=== PATIENT | male | born 1935 | race Caucasian/White ===

== ENCOUNTER 2018-01-03 09:27 | Observation (INO) ==
--- NOTE | 2018-01-03 10:03 | ED ---
HPI General Chief Complaint: Syncope Stated Complaint: syncope x yesterday Time Seen by Provider: 01/03/18 09:58 Source: patient Mode of arrival: ambulatory Limitations: no limitations History of Present Illness HPI narrative: 82-year-old male patient with history of hypertension, hypothyroidism, presents to the ER today because he had a syncopal episode while getting water from the fridge yesterday. He states that he had a similar episode about 4-6 months ago. He states that he did feel like he was not quite right right before the episode. However, he denies any chest pains, denies any headaches, denies any injuries or other issues. Modifying Factors: None Associated Signs & Symptoms: Syncope Risk Factors: None Related Data Home Medications Medication Instructions Recorded Confirmed levothyroxine 25 mcg PO DAILY 01/03/18 01/03/18 propranolol 10 mg PO BID 01/03/18 01/03/18 simvastatin 10 mg PO QPM 01/03/18 01/03/18 Allergies Allergy/AdvReac Type Severity Reaction Status Date / Time No Known Allergies Allergy Verified 01/03/18 09:35 Review of Systems ROS: all other systems reviewed are negative [facility] Medical History Medical History History of high cholesterol (Acute) History of hypothyroidism (Acute) Surgical History Surgical History History of bilateral knee replacement (Acute) Social History Social History Substance History: No History of Abuse Smoking Status: Former smoker Tobacco Type: Cigarettes How Often Do You Have a Drink Containing Alcohol: Never Recent Travel in [facility] within the Last 8 Weeks: No Recent Out of Country Travel within the Last 8 Weeks: No Immunization History Tetanus Immunization: Unsure Exam Narrative Exam Narrative: GENERAL: Well-developed elderly male patient currently in no acute distress. SKIN: Focused skin assessment warm/dry. HEAD: Atraumatic. Normocephalic. EYES: Pupils equal and round. No scleral icterus. No injection or drainage. ENT: No nasal bleeding or discharge. Mucous membranes pink and moist. NECK: Trachea midline. No JVD. CARDIOVASCULAR: Regular rate and rhythm. No murmur appreciated. RESPIRATORY: No accessory muscle use. Clear to auscultation. Breath sounds equal bilaterally. GASTROINTESTINAL: Abdomen soft, non-tender, nondistended. Hepatic and splenic margins not palpable. MUSCULOSKELETAL: No obvious deformities. No clubbing. No cyanosis. No edema. NEUROLOGICAL: Awake and alert. No obvious cranial nerve deficits. Motor grossly within normal limits. Normal speech.No pronator drift. PSYCHIATRIC: Appropriate mood and affect; insight and judgment normal. Course Initial Documented Vital Signs Temperature 97.5 F L 01/03/18 09:32 Pulse Rate 67 01/03/18 09:32 Respiratory Rate 16 01/03/18 09:32 Blood Pressure 180/92 H 01/03/18 09:32 Pulse Oximetry 97 01/03/18 09:32 Last Documented Vital Signs Temperature 97.5 F L 01/03/18 09:32 Pulse Rate 67 01/03/18 09:32 Respiratory Rate 16 01/03/18 09:32 Blood Pressure 180/92 H 01/03/18 09:32 Pulse Oximetry 97 01/03/18 09:32 Medical Decision Making MDM Narrative Medical decision making narrative: EKG shows a first-degree AV block, but is otherwise fairly unremarkable. Lab work did show some elevated BUN and creatinine, potassium is mildly elevated, perhaps he is somewhat dehydrated. Vital signs are stable in the ER. At this point, considering his syncopal episode and age, my plan would be to admit him for further evaluation of syncope. Case has been discussed with Dr. Tillman for admission. Medical Screen Exam Complete: Yes Emergency Medical Condition: Yes Differential Diagnosis Differential Diagnosis: Dysrhythmias versus dehydration versus electrolyte issues versus intracranial injuries Lab Data Lab results reviewed: Yes I reviewed the patient's lab results. Result diagrams: 01/03/18 10:00 01/03/18 10:00 Lab Results 01/03/18 01/03/18 Range/Units 10:00 10:00 CBC w Diff Auto diff final WBC 7.0 (4.0-11.0) th/mm3 RBC 4.99 (4.50-5.90) mil/mm3 Hgb 14.9 (13.0-17.0) gm/dL Hct 44.7 (39.0-51.0) % MCV 89.5 (80.0-100.0) fL MCH 29.8 (27.0-34.0) pg MCHC 33.3 (32.0-36.0) % RDW 13.1 (11.6-17.2) % Plt Count 177 (150-450) th/mm3 MPV 8.0 (7.0-11.0) fL Neut % (Auto) 73.5 H (16.0-70.0) % Lymph % (Auto) 14.7 (9.0-44.0) % Worth % (Auto) 8.0 (0.0-8.0) % Eos % (Auto) 2.8 (0.0-4.0) % Baso % (Auto) 1.0 (0.0-2.0) % Neut # (Auto) 5.1 (1.8-7.7) th/mm3 Lymph # (Auto) 1.0 (1.0-4.8) th/mm3 Worth # (Auto) 0.6 (0.0-0.9) th/mm3 Eos # (Auto) 0.2 (0.0-0.4) th/mm3 Baso # (Auto) 0.1 (0.0-0.2) th/mm3 WBC Differential . Differential Comment . Sodium 139 (136-145) meq/L Potassium 5.7 H (3.5-5.1) meq/L Chloride 109 H (98-107) meq/L Carbon Dioxide 21.2 (21.0-32.0) meq/L Anion Gap 9 (5-15) meq/L BUN 23 H (7-18) mg/dL Creatinine 1.40 H (0.60-1.30) mg/dL Estimated GFR 49 L (>89) mL/min Random Glucose 153 H (74-106) mg/dL Calcium 8.3 L (8.5-10.1) mg/dL Troponin I 0.03 (0.02-0.05) ng/mL Imaging Data Attestation: I personally reviewed and interpreted this imaging study as follows : Radiologist's impression: Chest X-Ray 01/03/18 09:58 CONCLUSION: Negative examination. Head CT 01/03/18 09:58 CONCLUSION: 1. Negative CT Head non contrast. . ECG Data Attestation: I personally reviewed and interpreted this ECG as follows: Interpretation: Sinus rhythm with a first-degree AV block, with a right bundle branch block pattern at a rate of 60 bpm. Discharge Plan Discharge Disposition Patient Disposition: 30 Still Patient Discharge Condition Condition: Stable Discharge Details Anticipated Discharge Date: 01/03/18 Diagnosis: Syncope Physicians Team ED Provider: Aron Freire Primary Care Provider: Sagar Zee Rxs /Orders / Referrals /Forms Prescriptions: No Action simvastatin 10 mg Tablet 10 mg PO QPM RF: 0 propranolol 10 mg Tablet 10 mg PO BID RF: 0 levothyroxine 25 mcg Capsule 25 mcg PO DAILY RF: 0 Status ED Status: With Doctor
[2018-01-03 10:14] LABS: Baso # (Auto) 0.1 th/mm3 (0.0-0.2); Eos # (Auto) 0.2 th/mm3 (0.0-0.4); Eos % (Auto) 2.8 % (0.0-4.0); Hematocrit 44.7 % (39.0-51.0); Hemoglobin 14.9 gm/dL (13.0-17.0); Lymph % (Auto) 14.7 % (9.0-44.0); Mean Corpuscular HGB Conc 33.3 % (32.0-36.0); Mean Corpuscular Hemoglobin 29.8 pg (27.0-34.0); Mean Corpuscular Volume 89.5 fL (80.0-100.0); Mono # (Auto) 0.6 th/mm3 (0.0-0.9); Neut # (Auto) 5.1 th/mm3 (1.8-7.7); Neut % (Auto) 73.5 % (16.0-70.0); Platelet Count 177 th/mm3 (150-450); Red Blood Count 4.99 mil/mm3 (4.50-5.90); Red Cell Distribution Width 13.1 % (11.6-17.2)
--- NOTE | 2018-01-03 10:26 | CT ---
EXAM DATE: 01/03/2018 10:19 AM EST AGE/SEX: 82 years / Male INDICATIONS: Syncope. CLINICAL DATA: This is the patient's initial encounter. Patient reports that signs and symptoms have been present for 2 days and indicates a pain score of 0/10. MEDICAL/SURGICAL HISTORY: Hypercholesterolemia. Hypothyroidism. . Bilateral knee replacement. RADIATION DOSE: 58.33 CTDI (mGy) COMPARISON: No prior exams available for comparison. TECHNIQUE: CT of the head without contrast. Using automated exposure control and adjustment of the mA and/or kV according to patient size, radiation dose was kept as low as reasonably achievable to ob tain optimal diagnostic quality images. DICOM format image data is available electronically for revi ew and comparison. FINDINGS: Cerebrum: The ventricles are normal for age. No evidence of midline shift, mass lesion, hemorrhage or acute infarction. No extraaxial fluid collections are seen. Posterior Fossa: The cerebellum and brainstem are intact. The 4th ventricle is midline. The cerebe llopontine angle is unremarkable. Extracranial: The visualized portion of the orbits is intact. Skull: The calvaria is intact. No evidence of skull fracture. CONCLUSION: 1. Negative CT Head non contrast. . Electronically signed by: Raul Shelton MD 01/03/2018 10:25 AM EST
[2018-01-03 10:30] LABS: Calcium 8.3 mg/dL (8.5-10.1)
[2018-01-03 10:31] LABS: Carbon Dioxide 21.2 meq/L (21.0-32.0)
[2018-01-03 10:32] LABS: Potassium 5.7 meq/L (3.5-5.1)
--- NOTE | 2018-01-03 10:34 | XR ---
EXAM DATE: 01/03/2018 10:30 AM EST AGE/SEX: 82 years / Male INDICATIONS: Syncope. CLINICAL DATA: This is the patient's initial encounter. Patient reports that signs and symptoms have been present for 1 day and indicates a pain score of 0/10. MEDICAL/SURGICAL HISTORY: Hypothyroidism. Hypercholesterolemia. None. COMPARISON: [facility], XR CHEST PA AND LAT, 11/27/2015. . FINDINGS: A single AP view of the chest demonstrates the lungs to be symmetrically aerated without evidence of mass, infiltrate or effusion. The cardiomediastinal contours are unremarkable. Osseous structures a re intact. CONCLUSION: Negative examination. Electronically signed by: Raul Shelton MD 01/03/2018 10:33 AM EST
[2018-01-03 10:39] LABS: Troponin I 0.03 ng/mL (0.02-0.05)
--- NOTE | 2018-01-03 13:03 | P.HPIM ---
History of Present Illness Primary Care Physician: Sagar Zee MD History of Present Illness: This patient is an 82-year-old male with a diagnosis of hypertension, hypothyroidism, and intention tremors. The patient presents to our emergency department today after he had a syncopal episode last night. The patient states he was sitting down on the couch and he got up to walk towards the refrigerator when he blacked out and fell to the ground. He said he had a similar episode approximately 6 months ago. The patient did not have any chest pain, no palpitations, no seizure-like activity prior to the syncopal episode. He denied any nausea or diaphoresis prior to the episode. His notes that the patient was slightly diaphoretic after the episode. No bowel or bladder incontinence. The patient denies any injuries after the syncopal episode. He does not have any other complaints. Past medical history hypertension, hypothyroidism, intention tremors Past surgical history bilateral knee replacements Social history the patient admits to smoking tobacco in his teens, no alcohol use, no history of drug use. Family history significant for coronary artery disease. Review of Systems All other systems reviewed negative except as stated in HPI PMFSH - History History Provided By: Patient - Medical History Medical History: Medical History (Last Reviewed 01/03/18 @ 10:01 by Aron Freire MD) History of high cholesterol History of hypothyroidism - Surgical History Surgical History: Surgical History (Last Reviewed 01/03/18 @ 10:01 by Aron Freire MD) History of bilateral knee replacement - Tobacco History Tobacco Use In Past 30 Days: No Smoking Status: Former smoker Tobacco Type: Cigarettes - Alcohol History How Often Do You Have a Drink Containing Alcohol: Never - Substance Use History Substance History: No History of Abuse - Travel History Recent Travel in the [place] Within the Last 8 Weeks: No Recent Travel Out of the Country Within the Last 8 Weeks: No - Immunization History Tetanus Immunization: Unsure Medications and Allergies Active Medications: Active Medications Amlodipine Besylate (Norvasc) 5 mg PO DAILY ISABELL Sodium Chloride (Ns Inj) 1,000 mls @ 84 mls/hr IV.CONT .[id number] ISABELL Allergies Allergy/AdvReac Type Severity Reaction Status Date / Time No Known Allergies Allergy Verified 01/03/18 09:35 Home Medications Medication Instructions Recorded Confirmed Type RX: levothyroxine 25 mcg PO DAILY 01/03/18 01/03/18 History RX: propranolol 10 mg PO BID 01/03/18 01/03/18 History RX: simvastatin 10 mg PO QPM 01/03/18 01/03/18 History Exam Vital signs: Vital Signs 01/03/18 09:32 01/03/18 11:50 Temperature 97.5 F L Pulse Rate 67 58 L Respiratory Rate 16 16 Blood Pressure 180/92 H 140/92 H Pulse Oximetry 97 95 Intake & Output 01/02/18 01/03/18 01/03/18 18:59 06:59 18:59 Weight 78 kg Narrative: General patient in no acute distress HEENT extraocular movements are intact, clear oropharyngeal mucosa, no JVD Cardiovascular S1-S2 audible, RRR, no murmurs rubs or gallops Respiratory clear to auscultation bilaterally Abdomen soft, nontender, nondistended, normal bowel sounds Extremities no edema 2+ distal pulses in bilateral upper and lower extremities Neuro cranial nerves II through XII intact Results - Labs CBC & Chem 7: 01/03/18 10:00 01/03/18 10:00 Labs: Short CBC 01/03/18 Range/Units 10:00 WBC 7.0 (4.0-11.0) th/mm3 Hgb 14.9 (13.0-17.0) gm/dL Hct 44.7 (39.0-51.0) % Plt Count 177 (150-450) th/mm3 BMP 01/03/18 10:00 Sodium 139 Potassium 5.7 H Chloride 109 H Carbon Dioxide 21.2 BUN 23 H Creatinine 1.40 H Calcium 8.3 L Cardiac Enzymes 01/03/18 Range/Units 10:00 Troponin I 0.03 (0.02-0.05) ng/mL - Imaging Impressions Chest X-Ray 01/03/18 09:58 CONCLUSION: Negative examination. Head CT 01/03/18 09:58 CONCLUSION: 1. Negative CT Head non contrast. . Caprini VTE Risk Assessment Caprini VTE Risk Assessment: Moderate/High Risk (score >= 2) Caprini Risk Assessment Model: Point Value = 1 Point Value = 2 Point Value = 3 Point Value = 5 Age 41-60 Minor surgery BMI > 25 kg/m2 Swollen legs Varicose veins or History of unexplained or recurrent spontaneous Oral contraceptives or hormone replacement Sepsis (< 1 month) Serious lung disease, including pneumonia (< 1 month) Abnormal pulmonary function Acute myocardial infarction Congestive heart failure (< 1 month) History of inflammatory bowel disease Medical patient at bed rest Age 61-74 Arthroscopic surgery Major open surgery (> 45 min) Laparoscopic surgery (> 45 min) Malignancy Confined to bed (> 72 hours) Immobilizing plaster cast Central venous access Age >= 75 History of VTE Family history of VTE Factor V Leiden Prothrombin [id number] Lupus anticoagulant Anticardiolipin antibodies Elevated serum homocysteine Heparin-induced thrombocytopenia Other congenital or acquired thrombophilia Stroke (< 1 month) Elective arthroplasty Hip, pelvis, or leg fracture Acute spinal cord injury (< 1 month) Prophylaxis Regimen: Total Risk Factor Score Risk Level Prophylaxis Regimen 0-1 Low Early ambulation 2 Moderate Order ONE of the following: *Sequential Compression Device (SCD) *Heparin 5000 units SQ BID 3-4 Higher Order ONE of the following medications: *Heparin 5000 units SQ TID *Enoxaparin/Lovenox 40 mg SQ daily (WT < 150 kg, CrCl > 30 mL/min) *Enoxaparin/Lovenox 30 mg SQ daily (WT < 150 kg, CrCl > 10-29 mL/min) *Enoxaparin/Lovenox 30 mg SQ BID (WT < 150 kg, CrCl > 30 mL/min) AND/OR *Sequential Compression Device (SCD) 5 or more Highest Order ONE of the following medications: *Heparin 5000 units SQ TID (Preferred with Epidurals) *Enoxaparin/Lovenox 40 mg SQ daily (WT < 150 kg, CrCl > 30 mL/min) *Enoxaparin/Lovenox 30 mg SQ daily (WT < 150 kg, CrCl > 10-29 mL/min) *Enoxaparin/Lovenox 30 mg SQ BID (WT < 150 kg, CrCl > 30 mL/min) AND *Sequential Compression Device (SCD) Assessment and Plan - Plan This patient is an 82-year-old male with a diagnosis of hypertension, hypothyroidism, and intention tremors. The patient presents to our emergency department today after he had a syncopal episode last night. The patient states he was sitting down on the couch and he got up to walk towards the refrigerator when he blacked out and fell to the ground. He said he had a similar episode approximately 6 months ago. The patient did not have any chest pain, no palpitations, no seizure-like activity prior to the syncopal episode. He denied any nausea or diaphoresis prior to the episode. His notes that the patient was slightly diaphoretic after the episode. 1. Syncope 2. Intention tremor Patient presented with the symptoms mentioned above. EKG was done which shows sinus rhythm with a right bundle branch block. CT scan of the head was done which is negative. Initial set of troponins are negative. CPK pending. Patient will be placed in observation. A 2D echocardiogram, carotid ultrasounds have been ordered. Imaging will be followed up. We will continue monitoring him on telemetry. Patient's heart rate is currently in the 50s, his propanolol for intention tremor will be stopped for now. Orthostats ordered. 3. Acute kidney injury possibly secondary to dehydration. 4. Acute hyperkalemia likely from acute kidney injury Patient has an elevated serum creatinine of 1.4. Potassium is 5.7. Patient was started on IV fluids. I will repeat a BMP. Potassium is still elevated the patient will be given treatment for hyperkalemia. Heparin for DVT prophylaxis.
--- NOTE | 2018-01-03 13:24 | ECHRPT ---
Indication: CVA/TIA CONCLUSIONS Normal left ventricular size. Wall thickness is normal. The left ventricular systolic function is low normal with an estimated ejection fraction in the rang e of 50- 55%. Trace mitral valve regurgitation. Trace aortic valve regurgitation. There is trace tricuspid valve regurgitation. The estimated pulmonary arterial pressure is 41 mmHg. BP: / HR: Rhythm: MEASUREMENTS (Male / Female) Normal Values Technical Quality:Technically difficult study 2D ECHO LV Diastolic Diameter PLAX 4.8 cm 4.2 - 5.9 / 3.9 - 5.3 cm LV Systolic Diameter PLAX 3.3 cm IVS Diastolic Thickness 0.9 cm 0.6 - 1.0 / 0.6 - 0.9 cm LVPW Diastolic Thickness 0.8 cm 0.6 - 1.0 / 0.6 - 0.9 cm LV Relative Wall Thickness 0.3 RV Internal Dim ED PLAX 3.0 cm LVOT Diameter 2.2 cm Aortic Root Diameter 2.5 cm LA Systolic Diameter LX 3.3 cm 3.0 - 4.0 / 2.7 - 3.8 cm DOPPLER AV Peak Velocity 90.9 cm/s AV Peak Gradient 3.3 mmHg AI Peak Velocity 371.0 cm/s AI Peak Gradient 55.1 mmHg AI Pressure Half Time 1032.0 ms LVOT Peak Velocity 61.2 cm/s LVOT Peak Gradient 1.5 mmHg AV Area Cont Eq pk 2.6 cm Mitral E Point Velocity 52.3 cm/s Mitral A Point Velocity 71.6 cm/s Mitral E to A Ratio 0.7 LV E' Lateral Velocity 5.1 cm/s Mitral E to LV E' Lateral Ratio 10.3 LV E' Septal Velocity 5.2 cm/s Mitral E to LV E' Septal Ratio 10.1 TR Peak Velocity 276.0 cm/s TR Peak Gradient 30.5 mmHg Right Atrial Pressure 10.0 mmHg Pulmonary Artery Systolic Pressu 40.5 mmHg Right Ventricular Systolic Press 40.5 mmHg PV Peak Velocity 70.6 cm/s PV Peak Gradient 2.0 mmHg FINDINGS LEFT VENTRICLE Normal left ventricular size. Wall thickness is normal. The left ventricular systolic function is low normal with an estimated ejection fraction in the rang e of 50- 55%. RIGHT VENTRICLE Normal right ventricular size and systolic function. LEFT ATRIUM The left atrial size is normal. RIGHT ATRIUM The right atrial size is normal. ATRIAL SEPTUM Normal atrial septal thickness without atrial level shunting by limited color doppler interrogation. AORTA The aortic root and proximal ascending aorta are normal in size on limited imaging. MITRAL VALVE Trace mitral valve regurgitation. AORTIC VALVE Trace aortic valve regurgitation. TRICUSPID VALVE There is trace tricuspid valve regurgitation. The estimated pulmonary arterial pressure is 41 mmHg. PULMONARY VALVE No pulmonary valve regurgitation or stenosis. VESSELS The inferior vena cava is normal in size. PERICARDIUM No pericardial effusion. Kala Pino MD, FACC (Electronically Signed) Final Date:03 January 2018 13:23
[2018-01-03] MEDS: Sod Chloride 0.9% Inj 1,000 ML IV.CONT SCH (13:58)
[2018-01-03] MEDS: amLODIPine 5 MG Tablet PO SCH (13:58)
--- NOTE | 2018-01-03 15:19 | US ---
EXAM DATE: 01/03/2018 3:05 PM EST AGE/SEX: 82 years / Male INDICATIONS: Syncope. CLINICAL DATA: This is the patient's initial encounter. Patient reports that signs and symptoms have been present for 1 day and indicates a pain score of 0/10. MEDICAL/SURGICAL HISTORY: Hypercholesterolemia. Hypothyroidism. Total knee replacement, left. Total knee replacement, right. COMPARISON: [facility], US CAROTID ARTERIES, 09/13/2015. . VELOCITY PARAMETERS: ICA/CCA Ratio: Right 1.2 , Left 0.9 ICA: Right 80 cm/sec, Left 78 cm/sec CCA: Right 64 cm/sec, Left 87 cm/sec ECA: Right 67 cm/sec, Left 89 cm/sec Vertebral: Right 45 cm/sec antegrade, Left 38 cm/sec antegrade FINDINGS: Right Carotid: Partially calcified atheromatous plaque involving the cephalad portion of the carotid bulb extending into the origin of the ICA and ECA. Grayscale analysis suggests less than 50% stenosi s..The waveforms are within normal limits. Left Carotid: Partially calcified atheromatous plaque involving the cephalad portion of the carotid bulb extending into the origin of the ICA and ECA. Grayscale analysis suggests less than 50% stenosis ..The waveforms are within normal limits. Other: None. CONCLUSION: 1. Calcified plaque involving both carotid arteries with less than 50% stenoses. 2. Antegrade flow involving both vertebral arteries. Electronically signed by: Raul Shelton MD 01/03/2018 3:17 PM EST
[2018-01-03 15:31] LABS: Calcium 8.2 mg/dL (8.5-10.1); Carbon Dioxide 23.5 meq/L (21.0-32.0); Potassium 4.2 meq/L (3.5-5.1)
--- NOTE | 2018-01-03 17:05 | ECG ---
Date Performed: 01/03/2018 Time Performed: 10:11:19 PTAGE: 82 years EKG: Sinus rhythm WITH FIRST DEGREE AV BLOCK INDETERMINATE AXIS RIGHT BUNDLE BRANCH BLOCK ABNORMAL ECG NO PREVIOUS TRACING DOCTOR: Kala Pino Interpretating Date/Time 01/03/2018 17:04:56
[2018-01-03 20:04] LABS: Bilirubin,Urine Negative (Negative); Clarity,Urine Clear (Clear); Color,Urine Yellow (Yellw/Straw); Glucose,Urine (UA) Negative (Negative); Leukocyte Esterase,Urine Negative (Negative); Nitrite,Urine Negative (Negative); PH,Urine 6.5 (5.0-8.5); Specific Gravity,Urine 1.015 (1.002-1.035); Urobilinogen,Urine 0.2 mg/dL (Less than 2)
[2018-01-03 20:11] LABS: Squamous Epithelial Cell,Urine 0-5 /hpf (0-5); WBC,Urine 0-5 /hpf (0-5)
[2018-01-03] MEDS: Heparin - SQ 10,000 UNITS/ML Vial SQ SCH (21:53)
--- NOTE | 2018-01-03 22:43 | ECG ---
Date Performed: 01/03/2018 Time Performed: 14:03:36 PTAGE: 82 years EKG: Sinus rhythm WITH FIRST DEGREE AV BLOCK LOW QRS VOLTAGE IN PRECORDIAL LEADS POSSIBLE INFERIOR MYOCARDIAL INFARCTI ON RBBB PREVIOUS TRACING : 01/03/2018 10.11 Since the previous tracing, no significant change not ed DOCTOR: Kala Pino Interpretating Date/Time 01/03/2018 22:42:35
[2018-01-04] MEDS: Sod Chloride 0.9% Inj 1,000 ML IV.CONT SCH (01:38)
[2018-01-04 08:03] LABS: Potassium 4.2 meq/L (3.5-5.1)
[2018-01-04 08:06] LABS: Calcium 8.1 mg/dL (8.5-10.1); Carbon Dioxide 24.3 meq/L (21.0-32.0); Magnesium 2.1 mg/dL (1.5-2.5)
[2018-01-04 08:24] VITALS: BP 159/86; RESP 20; TEMP 96.3; O2SAT 93
[2018-01-04] MEDS: amLODIPine 5 MG Tablet PO SCH (08:41)
[2018-01-04] MEDS: Heparin - SQ 10,000 UNITS/ML Vial SQ SCH (08:42)
[2018-01-04 10:35] VITALS: PULSE 75
--- NOTE | 2018-01-04 11:55 | P.PN ---
Subjective Interval history: She denies any acute changes overnight. Patient himself wants to go home. Says that his tremors do become quite problematic if he is not taking propranolol, affects his ability to sign forms. Physical Exam Vital signs: Vital Signs 01/03/18 16:00 01/03/18 17:15 01/03/18 20:00 Temperature 97.4 F L 98.4 F Pulse Rate 59 L 54 L 51 L Respiratory Rate 18 20 Blood Pressure 133/80 114/75 Pulse Oximetry 95 93 L 01/04/18 00:00 01/04/18 04:00 01/04/18 08:00 Temperature 97.3 F L 96.8 F L 96.3 F L Pulse Rate 60 55 L 75 Respiratory Rate 18 26 H 20 Blood Pressure 102/60 141/71 H 159/86 H Pulse Oximetry 96 95 93 L Intake & Output 01/03/18 01/04/18 01/04/18 18:59 06:59 18:59 Intake Total 1365 / 1365 Output Total 200 / 200 Balance 1165 / 1165 Weight 78 kg 77.5 kg Intake: IV 1000 / 1000 NS Inj 1,000 ML @ 84 mls/hr IV. 1000 / 1000 CONT .[id number] PENDING SALE TO [facility] Rx#: [id number] Oral 365 / 365 Output: Urine 200 / 200 Other: Post Void Residual 0 # Voids 3 4 # Bowel Movements 0 Weight On Admission 78 kg Narrative: Heart sounds regular rate rhythm, no murmurs Clear lungs bilaterally, unlabored breathing Sitting up in chair, no acute distress Results - Labs CBC & Chem 7: 01/03/18 10:00 01/04/18 07:40 Laboratory Results - last 24 hr 01/03/18 01/03/18 01/03/18 14:00 14:00 19:50 Sodium 140 Potassium 4.2 D Chloride 108 H Carbon Dioxide 23.5 Anion Gap 9 BUN 21 H Creatinine 1.40 H Estimated GFR 49 L Random Glucose 191 H Calcium 8.2 L Magnesium Troponin I 0.03 Urine Color Yellow Urine Clarity Clear Urine pH 6.5 Ur Specific [place] 1.015 Urine Protein Negative Urine Glucose (UA) Negative Urine Ketones Negative Urine Occult Blood Negative Urine Nitrate Negative Urine Bilirubin Negative Urine Urobilinogen 0.2 Ur Leukocyte Esterase Negative Urine WBC 0-5 Ur Squamous Epith Cells 0-5 Micro UA Comment Culture not ind Ur Microscopic Review Microscopic reviewed Urine Culture Comments Culture not ind 01/04/18 07:40 Sodium 142 Potassium 4.2 Chloride 111 H Carbon Dioxide 24.3 Anion Gap 7 BUN 18 Creatinine 1.10 Estimated GFR 64 L Random Glucose 105 Calcium 8.1 L Magnesium 2.1 Troponin I Urine Color Urine Clarity Urine pH Ur Specific [place] Urine Protein Urine Glucose (UA) Urine Ketones Urine Occult Blood Urine Nitrate Urine Bilirubin Urine Urobilinogen Ur Leukocyte Esterase Urine WBC Ur Squamous Epith Cells Micro UA Comment Ur Microscopic Review Urine Culture Comments - Imaging Impressions Carotid Doppler Study 01/03/18 00:00 CONCLUSION: 1. Calcified plaque involving both carotid arteries with less than 50% stenoses. 2. Antegrade flow involving both vertebral arteries. Assessment and Plan - Plan Syncope Likely secondary to dehydration his renal function is now improved with IV fluids. Telemetry strips reviewed, no acute events noted overnight. Hypokalemia is also resolved with IV fluids. Had extensive discussion with patient about adequate daily hydration with at least 8-10 cups of water, caffeinated and carbonated drinks not included. I had extensive discussion about propranolol as well, will discontinue it for now given AV block noted on his EKG as well as some mild bradycardia when he goes to sleep and borderline sinus rhythm while he is awake in the 60s and 70s - instructed the patient to follow-up closely with his primary care provider. Patient has met maximum benefit from hospitalization is clinically stable for discharge.
== END 2018-01-04 12:42 | disposition home or self-care (01) ==
LOC: PHED 09:27 → PHEDA 09:27 → PH3 12:01
PROVIDERS: ADMIT Hospitalist; ATTEND Hospitalist
DX: E78.00 Pure hypercholesterolemia, unspecified; R55 Syncope and collapse; R00.1 Bradycardia, unspecified; I10 Essential (primary) hypertension; I45.10 Unspecified right bundle-branch block; E87.6 Hypokalemia; Z87.891 Personal history of nicotine dependence; Z79.899 Other long term (current) drug therapy; E03.9 Hypothyroidism, unspecified; I65.23 Occlusion and stenosis of bilateral carotid arteries; I44.30 Unspecified atrioventricular block; G25.2 Other specified forms of tremor; E87.5 Hyperkalemia; N17.9 Acute kidney failure, unspecified